=== PATIENT | female | born 1975 | race Caucasian/White ===

== ENCOUNTER 2016-12-30 17:23 | Emergency (ER) | payer MEDICAID | END 2016-12-30 21:00 | disposition home or self-care (01) | LOC: D.ER 17:23 | DX: M54.16 Radiculopathy, lumbar region (principal) ==

== ENCOUNTER 2017-12-29 16:11 | Emergency (ER) | payer MEDICAID | END 2017-12-29 17:51 | disposition home or self-care (01) | LOC: D.ER 16:11 | DX: M70.71 Other bursitis of hip, right hip (principal); M25.551 Pain in right hip ==

== ENCOUNTER 2020-03-26 12:15 | Emergency (ER) | payer SELFPAY ==
[~2020-03-26] VITALS: Ht 152.4 cm; Wt 77.3 kg
[~2020-03-26 12:15] MED LIST: GLUCOPHAGE500 MG PO; KEFLEX500 MG PO
[2020-03-26 12:19] VITALS: Ht 152.4 cm; Wt 77.3 kg
[2020-03-26] MEDS ORDERED: PREDNISONE20 MG PO (14:24)
[2020-03-26] MEDS ORDERED: ULTRAM50 MG PO (14:24)
[2020-03-26 14:42] VITALS: BP 127/83
== END 2020-03-26 14:42 | disposition home or self-care (01) ==
LOC: D.ER 12:15
DX: M54.31 Sciatica, right side (principal); E11.9 Type 2 diabetes mellitus without complications; Z79.84 Long term (current) use of oral hypoglycemic drugs